=== PATIENT | male | born 1995 | race Caucasian/White ===

== ENCOUNTER 2018-08-17 09:29 | Emergency (ER) | payer MEDICAID, SELFPAY ==
[2018-08-17] VITALS (13 sets, daily range): BP systolic 113–143; BP diastolic 58–90; PULSE 75–92; RESP 14–18; TEMP 36.6; O2SAT 96–98; BMI 25.8
--- NOTE | 2018-08-17 09:59 | ED.RN ---
pt friend approaches this rn and states pt has attempted to kill self 3 times recently. pt did not admit to this earlier during triage
[2018-08-17] MEDS: Ibuprofen 600 MG Tablet PO ×2 (10:12→17:07)
[2018-08-17 10:13] LABS: Absolute Lymphocyte Count 2.52 X10^3/ul (0.83-4.51); Absolute Neutrophil Count 3.5 X10^3/uL (2.0-7.7); Basophil# 0.06 X10^3/uL; Basophil% 0.8 % (0-1); Eosinophil# 0.47 X10^3/uL; Eosinophils% 6.6 % (0-5); Hematocrit 47.3 % (40-54); Hemoglobin 16.5 g/dl (13.0-16.5); Lymphocyte # 2.52 X10^3/ul (4.0); Lymphocyte % 35.6 % (19-41); Mean Corp Hgb Conc 34.9 g/gl (32-36); Mean Corpuscular Hgb 30.6 pg (27.0-32.0); Mean Corpuscular Volume 87.8 fL (80-94); Mean Platelet Vol. 10.6 fl (6.2-12.0); Monocyte# 0.45 X10^3/uL; Monocyte% 6.4 % (0-10); Neutrophil # 3.54 X10^3/uL (2.7-7.7); POSITIVE COUNT NO; POSITIVE DIFFERENTIAL NO; POSITIVE MORPHOLOGY NO; Platelet Count 259 K/mm3 (150-450); RBC Distribution Width CV 12.5 % (11.6-14.6); RBC Distribution Width SD 40.2 fl (35.1-43.9); Red Blood Count 5.39 M/mm3 (4.6-6.2); White Blood Count 7.1 K/mm3 (4.4-11.0)
[2018-08-17 10:26] LABS: Anion Gap 7 (5-15); BUN 15 mg/dL (7-18); BUN/Creat Ratio 21.4 RATIO (10-20); Calcium,Total 8.8 mg/dL (8.5-10.1); Chloride 108 mmol/L (98-107); EST Glomerular Filtration Rate 146 mL/min (>60); Est Glom Filt Rate - Afr Amer 176 mL/min (>60); Estimated Creatinine Clearance 161.32 ml/min; Glucose 114 mg/dL (74-106); Potassium 3.7 mmol/L (3.5-5.1); Sodium Level 141 mmol/L (136-145)
[2018-08-17 10:46] LABS: Amphetamine Urine VISTA NEGATIVE (<1000 ng/mL); Barbiturate Urine VISTA NEGATIVE (< 200 ng/mL); Benzodiazepine Urine VISTA NEGATIVE (< 200 ng/mL); Cocaine Urine VISTA NEGATIVE (< 300 ng/mL); Ecstacy Urine VISTA NEGATIVE (< 500 ng/mL); Methadone Urine VISTA NEGATIVE (< 300 ng/mL); PCP Urine VISTA NEGATIVE (< 25 ng/mL); THC Urine VISTA POSITIVE (< 50 ng/mL); Vista UDS pH Range 5
--- NOTE | 2018-08-17 11:41 | NURSING ---
CALLED CRISIS. LEFT MESSAGE ABOUT PATIENT BEING MEDICALLY CLEARED
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
--- NOTE | 2018-08-17 14:34 | NURSING ---
KODI, CRISIS, CALLED. MADE AWARE OF PATIENT
--- NOTE | 2018-08-17 15:31 | NURSING ---
CALLED CRISIS, TALKED TO JOSE MARIEE WILL BE COMING TO SEE PATIENT
--- NOTE | 2018-08-17 15:35 | NURSING ---
JOSE, CRISIS, CALLED. SHE WILL BE HERE ABOUT 1700
--- NOTE | 2018-08-17 17:47 | NURSING ---
JOSE, CRISIS, HERE
[2018-08-18] VITALS (8 sets, daily range): BP systolic 106–107; BP diastolic 62–66; PULSE 52–78; RESP 16–20; TEMP 36.7; O2SAT 97
--- OUTSIDE RECORDS SUMMARY | 2018-10-03 11:57 | XMS RPT_ITS ---
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 20.80 LAB RBCCT(LOINC 4.50-6.00 10 6/mcL ) RBC 4.86 LAB HGB(LOINC) 13.0-17.5 G/dL Hgb 14.8 LAB HCT(LOINC) 40.0-52.0 % Hct 44.2 LAB MCV(LOINC) 81.0-100.0 fL MCV 90.8 LAB MCH(LOINC) 27.0-33.0 pg MCH 30.4 LAB MCHC(LOINC) 32.0-36.0 G/dL MCHC 33.5 LAB RDW(LOINC) 11.5-15.5 % RDW 13.0 LAB PLT(LOINC) 150-450 10 3/mcL Platelet 164 LAB MPV(LOINC) 6.4-10.5 fL MPV 9.0 Performed By: #### CBC, ADIFF, ANEU, BMP, CK, GFR #### [place] [id number] .AUTO DIFF Collected: 05/16/2018 Status: F Source: [facility] 4:32 AM [facility] [place] REPOSITORY TYPE CODE TESTS RESULT OUT OF REFERENCE UNITS RANGE LAB CHACE(LOINC) 50.0-75.0 % High Neutrophil % 85.8 LAB LYM(LOINC) 20.0-40.0 % Low Lymphocyte % 5.1 LAB MON(LOINC) 2.0-13.0 % Monocyte % 5.9 LAB EO(LOINC) 0.0-6.0 % Eosinophil % 2.8 LAB BAS(LOINC) 0.0-2.5 % Basophil % 0.4 LAB ABLYM(LOIN 0.90-4.32 10 3/mcL C) Lymphocyte, 1.10 Absolute LAB GERARDO(LOINC 0.09-1.40 10 3/mcL ) Monocyte, 1.20 Absolute LAB AEOS(LOINC 0.00-0.65 10 3/mcL ) Eosinophil, 0.60 Absolute LAB ABAS(LOINC 0.00-0.27 10 3/mcL ) Basophil, 0.10 Absolute Performed By: #### CBC, ADIFF, ANEU, BMP, CK, GFR #### [place] [id number] .NEUABS Collected: 05/16/2018 Status: F Source: [facility] 4:32 AM [facility] [place] REPOSITORY TYPE CODE TESTS RESULT OUT OF REFERENCE UNITS RANGE LAB ANEU(LOINC) 2.25-8.10 10 3/mcL High Neutrophil, 17.80 Absolute Performed By: #### CBC, ADIFF, ANEU, BMP, CK, GFR #### [place] [address] BMP Collected: 05/16/2018 Status: F Source: [facility] 4:32 AM [facility] [place] REPOSITORY TYPE CODE TESTS RESULT OUT OF REFERENCE UNITS RANGE LAB GLU(LOINC) 70-110 mg/dL Glucose Level 107 LAB NA(LOINC) 136-145 mEq/L Sodium Level 143 LAB K(LOINC) 3.5-5.0 mEq/L Low Potassium Level 3.2 LAB CL(LOINC) 98-110 mEq/L Chloride 107 LAB CO2(LOINC) 22-32 mEq/L CO2 23 LAB EBAL(LOINC 4.0-15.0 mEq/L ) Electrolyte Balance 13.0 LAB BUN(LOINC) 8.0-22.0 mg/dL Low BUN 7.0 LAB CRE(LOINC) 0.60-1.40 mg/dL Creatinine Lvl (s) 0.75 LAB BC(LOINC) 10.0-22.0 ratio Low BUN/Creatinine 9.3 Ratio LAB CA(LOINC) 8.4-10.1 mg/dL Calcium Lvl 9.2 Performed By: #### CBC, ADIFF, ANEU, BMP, CK, GFR #### [address] [address] CK Collected: 05/16/2018 Status: F Source: [facility] 4:32 AM [facility] [place] REPOSITORY TYPE CODE TESTS RESULT OUT OF RANGE REFERENCE UNITS LAB CK(LOINC) 7-185 U/L High CPK 967 Performed By: #### CBC, ADIFF, ANEU, BMP, CK, GFR #### [address] [address] .GFR Collected: 05/16/2018 Status: F Source: [facility] 4:32 AM [facility] [place] REPOSITORY TYPE CODE TESTS RESULT OUT OF REFERENCE UNITS RANGE LAB GFRAA(LOINC ml/min/1.73 ) sqm GFR >60 Russian Result Comment: GFR Population mean for , Non- Americans Ages 20-29 = 116 mL/min/1.73 sq.m. Ages 30-39 = 107 mL/min/1.73 sq.m. Ages 40-49 = 99 mL/min/1.73 sq.m. Ages 50-59 = 93 mL/min/1.73 sq.m. Ages 60-69 = 85 mL/min/1.73 sq.m. Ages 70+ = 75 mL/min/1.73 sq.m. Chronic Kidney Disease: Less than 60 mL/min/1.73 square meters End Stage Renal Disease: Less than 15 mL/min/1.73 square meters LAB GFRNO(LOINC) ml/min/1.73sqm GFR Non- >60 Result Comment: GFR Population mean for , Non- Americans Ages 20-29 = 116 mL/min/1.73 sq.m. Ages 30-39 = 107 mL/min/1.73 sq.m. Ages 40-49 = 99 mL/min/1.73 sq.m. Ages 50-59 = 93 mL/min/1.73 sq.m. Ages 60-69 = 85 mL/min/1.73 sq.m. Ages 70+ = 75 mL/min/1.73 sq.m. Chronic Kidney Disease: Less than 60 mL/min/1.73 square meters End Stage Renal Disease: Less than 15 mL/min/1.73 square meters Performed By: #### CBC, ADIFF, ANEU, BMP, CK, GFR #### [place] [address] PHOS Collected: 05/16/2018 Status: F Source: [facility] 4:32 AM [facility] [place] REPOSITORY Order Comment: ADD ON TEST TO MORNING LABS. Thank you TYPE CODE TESTS RESULT OUT OF REFERENCE UNITS RANGE LAB PHOS(LOINC 2.5-4.5 mg/dL ) Low Phosphorus 2.1 Performed By: #### PHOS #### [place] [address] MG Collected: 05/15/2018 Status: F Source: [facility] 4:46 PM [facility] [place] REPOSITORY TYPE CODE TESTS RESULT OUT OF REFERENCE UNITS RANGE LAB MG(LOINC) 1.6-2.4 mg/dL Magnesium Lvl 1.8 Performed By: #### MG #### [place] [address] TROPI Collected: 05/15/2018 Status: F Source: [facility] 9:41 AM [facility] [place] REPOSITORY TYPE CODE TESTS RESULT OUT OF REFERENCE UNITS RANGE LAB TROPI(LOINC 0.000-0.040 ng/mL ) Troponin I 0.038 Result Comment: Troponin I reference ranges (05/14/14): 0.00-0.040 ng/mL Negative and non-diagnostic. >0.040 ng/mL Consistent with cardiac damage, increased clinical risk and possibility of myocardial infarction. Serial measurements, a rise & fall in test results, clinical history, appropriate symptoms and/or ECG changes may help assess possibility of ID. *Other non-acute coronary syndrome conditions such as CHF, myocarditis, pulmonary emboli, sepsis and cardiac surgery could result in myocardial damage and increased troponin levels. Performed By: #### TROPI #### [place] [id number] Observed: 05/15/2018 Status: F Source: [facility] 8:13 AM [facility] [place] REPOSITORY . MICRO - Microbiology PROCEDURE: Culture Respiratory with Gram Stain [^1 *1] SOURCE: Tracheal Aspirate BODY SITE: COLLECTED DATE/TIME: 05/15/2018 08:13 EDT RECEIVED DATE/TIME: 05/15/2018 08:29 EDT START DATE/TIME: 05/15/2018 08:29 EDT FREE TEXT SOURCE: FINAL REPORTS Final Report [] Verified Date/Time/Personnel: 05/17/2018 06:56 EDT Normal respiratory selin present. PRELIMINARY REPORTS Preliminary Report [] Verified Date/Time/Personnel: 05/16/2018 09:01 EDT Negative for respiratory pathogens at 24 hours. STAINS GS [] Verified Date/Time/Personnel: 05/15/2018 09:49 EDT 4+ Polymorphonuclear cells 4+ Gram Positive Cocci Interpretive Data ^1: Culture Respiratory with Gram Stain Requests for Mycoplasma, Legionella, Fungi, Mycobacteria, Chlamydia, and Viruses require ordering of those individual tests. Performing Locations *1: This test was performed at: [facility], [address] [place] [address], [address] [place] [address] Performed By: #### KENYATTA #### [address] [address] BG Collected: 05/15/2018 Status: F Source: [facility] 7:16 AM [facility] [place] REPOSITORY TYPE CODE TESTS RESULT OUT OF REFERENCE UNITS RANGE LAB PH(LOINC) 7.380-7.460 pH High 7.466 LAB PCO2(LOINC 32.0-46.0 mmHg ) pCO2 33.5 LAB PO2(LOINC) 74.0-108.0 mmHg pO2 High 131.7 LAB HCO3(LOINC 21.0-29.0 mmol/L ) HCO3 23.6 LAB TCO2(LOINC 22.0-30.0 mmol/L ) CO2 Totl 24.6 LAB BE(LOINC) mmol/L Base Excess 0.5 LAB O2SAT(LOIN 92.0-96.0 % C) O2 Sat High 98.9 LAB BPRES(LOIN mmHg C) Barometric 733 Pressure Performed By: #### BG #### [address] [address] XR CHEST 1 VIEW Observed: 05/15/2018 Status: F Source: [facility] 5:14 AM [facility] [place] REPOSITORY ORIGINAL XR CHEST 1 VIEW, portable upright 7:01 AM Clinical Statement: sob, Comparison: 05/14/2018 Findings: No consolidation, pneumothorax, pleural fluid, or vascular congestion is seen. Heart size and mediastinal contours are within normal limits for age and projection. No acute skeletal abnormality. Endotra cheal tube tip is 6 cm above the dante. Enteric tube is in the stomach, tip not included. IMPRESSION: No acute cardiopulmonary process. Interpreted By: Chalo Mirza MD Preliminary Report By: Chalo Mirza MD Electronically Signed By: Chalo Mirza MD Dictated Date: 05/15/2018 7:46:33 AM Prelim Date: 05/15/2018 7:46:33 AM Sign Date: 05/15/2018 7:47:09 AM CAION Collected: 05/15/2018 Status: F Source: [facility] 3:52 AM [facility] [place] REPOSITORY TYPE CODE TESTS RESULT OUT OF REFERENCE UNITS RANGE LAB CAION(LOINC 1.12-1.32 mmol/L ) Low Calcium 1.05 Ionized Performed By: #### CAION, CBC, ADIFF, ANEU, TROPI, CK, BMP, MG, GFR, PHOS #### [place] [id number] CBC Collected: 05/15/2018 Status: F Source: [facility] 3:52 AM [facility] [place] REPOSITORY TYPE CODE TESTS RESULT OUT OF REFERENCE UNITS RANGE LAB WBC(LOINC) 4.50-10.80 10 3/mcL High WBC 11.90 LAB RBCCT(LOINC 4.50-6.00 10 6/mcL ) RBC 4.56 LAB HGB(LOINC) 13.0-17.5 G/dL Hgb 13.9 LAB HCT(LOINC) 40.0-52.0 % Hct 40.8 LAB MCV(LOINC) 81.0-100.0 fL MCV 89.4 LAB MCH(LOINC) 27.0-33.0 pg MCH 30.5 LAB MCHC(LOINC) 32.0-36.0 G/dL MCHC 34.2 LAB RDW(LOINC) 11.5-15.5 % RDW 12.9 LAB PLT(LOINC) 150-450 10 3/mcL Platelet 167 LAB MPV(LOINC) 6.4-10.5 fL MPV 8.7 Performed By: #### STANLEY, CBC, ADIFF, ANEU, TROPI, CK, BMP, MG, GFR, PHOS #### [address] [address] .AUTO DIFF Collected: 05/15/2018 Status: F Source: [facility] 3:52 AM [facility] [place] REPOSITORY TYPE CODE TESTS RESULT OUT OF REFERENCE UNITS RANGE LAB CHACE(LOINC) 50.0-75.0 % High Neutrophil % 79.8 LAB LYM(LOINC) 20.0-40.0 % Low Lymphocyte % 9.5 LAB MON(LOINC) 2.0-13.0 % Monocyte % 7.2 LAB EO(LOINC) 0.0-6.0 % Eosinophil % 2.9 LAB BAS(LOINC) 0.0-2.5 % Basophil % 0.6 LAB ABLYM(LOIN 0.90-4.32 10 3/mcL C) Lymphocyte, 1.10 Absolute LAB GERARDO(LOINC 0.09-1.40 10 3/mcL ) Monocyte, 0.90 Absolute LAB AEOS(LOINC 0.00-0.65 10 3/mcL ) Eosinophil, 0.30 Absolute LAB ABAS(LOINC 0.00-0.27 10 3/mcL ) Basophil, 0.10 Absolute Performed By: #### STANLEY, CBC, ADIFF, ANEU, TROPI, CK, BMP, MG, GFR, PHOS #### [address] [address] .NEUABS Collected: 05/15/2018 Status: F Source: [facility] 3:52 AM [facility] [place] REPOSITORY TYPE CODE TESTS RESULT OUT OF REFERENCE UNITS RANGE LAB ANEU(LOINC) 2.25-8.10 10 3/mcL High Neutrophil, 9.50 Absolute Performed By: #### STANLEY, CBC, ADIFF, ANEU, TROPI, CK, BMP, MG, GFR, PHOS #### [address] [address] TROPI Collected: 05/15/2018 Status: F Source: [facility] 3:52 AM [facility] [place] REPOSITORY TYPE CODE TESTS RESULT OUT OF REFERENCE UNITS RANGE LAB TROPI(LOINC 0.000-0.040 ng/mL ) Troponin I 0.037 Result Comment: Troponin I reference ranges (05/14/14): 0.00-0.040 ng/mL Negative and non-diagnostic. >0.040 ng/mL Consistent with cardiac damage, increased clinical risk and possibility of myocardial infarction. Serial measurements, a rise & fall in test results, clinical history, appropriate symptoms and/or ECG changes may help assess possibility of ID. *Other non-acute coronary syndrome conditions such as CHF, myocarditis, pulmonary emboli, sepsis and cardiac surgery could result in myocardial damage and increased troponin levels. Performed By: #### CAION, CBC, ADIFF, ANEU, TROPI, CK, BMP, MG, GFR, PHOS #### [place] [id number] CK Collected: 05/15/2018 Status: F Source: [facility] 3:52 AM [facility] [place] REPOSITORY TYPE CODE TESTS RESULT OUT OF RANGE REFERENCE UNITS LAB CK(LOINC) 7-185 U/L High CPK 2335 Performed By: #### CAION, CBC, ADIFF, ANEU, TROPI, CK, BMP, MG, GFR, PHOS #### [place] [address] BMP Collected: 05/15/2018 Status: F Source: [facility] 3:52 AM [facility] [place] REPOSITORY TYPE CODE TESTS RESULT OUT OF REFERENCE UNITS RANGE LAB GLU(LOINC) 70-110 mg/dL Glucose Level 97 LAB NA(LOINC) 136-145 mEq/L Sodium High Level 146 LAB K(LOINC) 3.5-5.0 mEq/L Low Potassium Level 3.4 LAB CL(LOINC) 98-110 mEq/L Chloride High 111 LAB CO2(LOINC) 22-32 mEq/L CO2 23 LAB EBAL(LOINC 4.0-15.0 mEq/L ) Electrolyte Balance 12.0 LAB BUN(LOINC) 8.0-22.0 mg/dL BUN 9.0 LAB CRE(LOINC) 0.60-1.40 mg/dL Creatinine Lvl (s) 0.78 LAB BC(LOINC) 10.0-22.0 ratio BUN/Creatinine 11.5 Ratio LAB CA(LOINC) 8.4-10.1 mg/dL Calcium Lvl 8.4 Performed By: #### CAION, CBC, ADIFF, ANEU, TROPI, CK, BMP, MG, GFR, PHOS #### [address] [address] MG Collected: 05/15/2018 Status: F Source: [facility] 3:52 AM [facility] [place] REPOSITORY TYPE CODE TESTS RESULT OUT OF REFERENCE UNITS RANGE LAB MG(LOINC) 1.6-2.4 mg/dL Magnesium Lvl 1.8 Performed By: #### CAION, CBC, ADIFF, ANEU, TROPI, CK, BMP, MG, GFR, PHOS #### [address] [address] .GFR Collected: 05/15/2018 Status: F Source: [facility] 3:52 AM [facility] [place] REPOSITORY TYPE CODE TESTS RESULT OUT OF REFERENCE UNITS RANGE LAB GFRAA(LOINC ml/min/1.73 ) sqm GFR >60 Russian Result Comment: GFR Population mean for , Non- Americans Ages 20-29 = 116 mL/min/1.73 sq.m. Ages 30-39 = 107 mL/min/1.73 sq.m. Ages 40-49 = 99 mL/min/1.73 sq.m. Ages 50-59 = 93 mL/min/1.73 sq.m. Ages 60-69 = 85 mL/min/1.73 sq.m. Ages 70+ = 75 mL/min/1.73 sq.m. Chronic Kidney Disease: Less than 60 mL/min/1.73 square meters End Stage Renal Disease: Less than 15 mL/min/1.73 square meters LAB GFRNO(LOINC) ml/min/1.73sqm GFR Non- >60 Result Comment: GFR Population mean for , Non- Americans Ages 20-29 = 116 mL/min/1.73 sq.m. Ages 30-39 = 107 mL/min/1.73 sq.m. Ages 40-49 = 99 mL/min/1.73 sq.m. Ages 50-59 = 93 mL/min/1.73 sq.m. Ages 60-69 = 85 mL/min/1.73 sq.m. Ages 70+ = 75 mL/min/1.73 sq.m. Chronic Kidney Disease: Less than 60 mL/min/1.73 square meters End Stage Renal Disease: Less than 15 mL/min/1.73 square meters Performed By: #### CAION, CBC, ADIFF, ANEU, TROPI, CK, BMP, MG, GFR, PHOS #### [address] [address] PHOS Collected: 05/15/2018 Status: F Source: [facility] 3:52 AM [facility] [place] REPOSITORY TYPE CODE TESTS RESULT OUT OF REFERENCE UNITS RANGE LAB PHOS(LOINC 2.5-4.5 mg/dL ) Phosphorus 2.8 Performed By: #### CAION, CBC, ADIFF, ANEU, TROPI, CK, BMP, MG, GFR, PHOS #### [address] [address] TROPI Collected: 05/14/2018 Status: F Source: [facility] 10:09 PM [facility] [place] REPOSITORY TYPE CODE TESTS RESULT OUT OF REFERENCE UNITS RANGE LAB TROPI(LOINC 0.000-0.040 ng/mL ) High Troponin I 0.076 Result Comment: Troponin I reference ranges (05/14/14): 0.00-0.040 ng/mL Negative and non-diagnostic. >0.040 ng/mL Consistent with cardiac damage, increased clinical risk and possibility of myocardial infarction. Serial measurements, a rise & fall in test results, clinical history, appropriate symptoms and/or ECG changes may help assess possibility of ID. *Other non-acute coronary syndrome conditions such as CHF, myocarditis, pulmonary emboli, sepsis and cardiac surgery could result in myocardial damage and increased troponin levels. Performed By: #### TROPI #### [address] [address] Observed: 05/14/2018 Status: F Source: [facility] 6:07 PM [facility] [place] REPOSITORY . MICRO - Microbiology PROCEDURE: MRSA PCR [*1] SOURCE: Nares BODY SITE: COLLECTED DATE/TIME: 05/14/2018 18:07 EDT RECEIVED DATE/TIME: 05/14/2018 18:58 EDT START DATE/TIME: 05/14/2018 18:59 EDT FREE TEXT SOURCE: FINAL REPORTS Final Report [] Verified Date/Time/Personnel: 05/14/2018 22:37 EDT MRSA NEGATIVE. MRSA DNA not detected by Real-Time Polymerase Chain Reaction (PCR). A negative result may be due to intermittent colonization. Colonization may vary depending on patient treatment, patient status or exposure to high risk environments. As with all PCR based in vitro tests, extremely low levels of target below the limit of detection of the assay may be detected, but results may not be reproducible. Performing Locations *1: This test was performed at: [facility], [address] [place] [address], [address] [place] [address] Performed By: #### MRPCR #### [place] [address] DRUGU Collected: 05/14/2018 Status: F Source: [facility] 3:45 [facility] REPOSITORY TYPE CODE TESTS RESULT OUT OF RANGE REFERENCE UNITS LAB UDS(LOINC) Positive Unknown Drug Screen Urine LAB UDSDINT(LO INC) The Unknown Drug Screen urine is Urine Interp presumptive positive for: _ LAB SGDU(LOINC 1.005-1.030 ) 1.[address] Scrn LAB PHDU(LOINC 5.0-8.0 ) 7.0 U pH Drug Scrn LAB UDS0(LOINC ) See Urine Drugs Below screened: Result Comment: This drug screen is a presumptive screening only. No confirmation will be performed unless requested. Drugs screened include: Threshold Amphetamines/Methamphetamines 1,000 ng/mL Barbiturates 200 ng/mL Benzodiazepine metabolites 200 ng/mL Cannabinoids (THC metabolites) 50 ng/mL Benzoylecognine (Cocaine metab) 300 ng/mL Opiates 300 ng/mL Phencyclidine (PCP) 25 ng/mL Methadone 300 ng/mL Propoxyphene 300 ng/mL Testing has been performed FOR MEDICAL PURPOSES ONLY. Performed By: #### DRUGU #### [place] [address] UA Collected: 05/14/2018 Status: F Source: [facility] 3:45 PM [facility] [place] REPOSITORY TYPE CODE TESTS RESULT OUT OF RANGE REFERENCE UNITS LAB SPCUA(MAXINE NC) UA Specimen Type Catheter LAB CLRUA(MAXINE NC) UA Color Yellow LAB APPUA(MAXINE Clear NC) UA Appear Clear LAB SGUA(LOIN 1.006-1.029 C) UA Spec Grav 1.015 LAB GLUA(LOIN Negative mg/dL C) UA Glucose Unknown 100 LAB BILUA(MAXINE Neg-Trace NC) UA Bili Negative LAB KETUA(MAXINE Neg-Trace mg/dL NC) UA Ketones Negative LAB BLDUA(MAXINE Neg-Trace NC) UA Blood Trace LAB PHUA(LOIN 5.0 - 8.0 C) UA pH 7.0 LAB PROUA(MAXINE Negative mg/dL NC) UA Protein Negative LAB UROUA(MAXINE 0.2-1.0 E.U./dL NC) UA Urobilinogen 1.0 LAB NITUA(MAXINE Negative NC) UA Nitrite Negative LAB LEUUA(MAXINE Negative NC) UA Leuk Est Trace Performed By: #### UA #### [place] [address] BG Collected: 05/14/2018 Status: F Source: [facility] 3:09 PM [facility] [place] REPOSITORY TYPE CODE TESTS RESULT OUT OF REFERENCE UNITS RANGE LAB PH(LOINC) 7.380-7.460 Low pH 7.353 LAB PCO2(LOINC 32.0-46.0 mmHg ) pCO2 43.7 LAB PO2(LOINC) 74.0-108.0 mmHg pO2 High 178.2 LAB HCO3(LOINC 21.0-29.0 mmol/L ) HCO3 23.7 LAB TCO2(LOINC 22.0-30.0 mmol/L ) CO2 Totl 25.1 LAB BE(LOINC) mmol/L Base Excess -1.9 LAB O2SAT(LOIN 92.0-96.0 % C) O2 Sat High 99.3 LAB BPRES(LOIN mmHg C) Barometric 735 Pressure Performed By: #### BG #### [place] [address] CK Collected: 05/14/2018 Status: F Source: [facility] 2:36 PM [facility] [place] REPOSITORY TYPE CODE TESTS RESULT OUT OF RANGE REFERENCE UNITS LAB CK(LOINC) 7-185 U/L High CPK 1859 Performed By: #### CK #### [place] [address] Observed: 05/14/2018 Status: F Source: [facility] 2:36 PM [facility] [place] REPOSITORY . MICRO - Microbiology PROCEDURE: Blood Culture (bacterial) [*1] SOURCE: Blood BODY SITE: COLLECTED DATE/TIME: 05/14/2018 14:36 EDT RECEIVED DATE/TIME: 05/14/2018 15:35 EDT START DATE/TIME: 05/14/2018 15:35 EDT FREE TEXT SOURCE: FINAL REPORTS Final Report [] Verified Date/Time/Personnel: 05/19/2018 15:59 EDT Blood Culture: No Growth at 5 days. PRELIMINARY REPORTS Preliminary Report [] Verified Date/Time/Personnel: 05/14/2018 16:59 EDT Culture has been received in lab and is no growth to date. Routine cultures are held for 5 days. Performing Locations *1: This test was performed at: [address], [address] [place] [address] Performed By: #### CBL #### [place] [address] CBC Collected: 05/14/2018 Status: F Source: [facility] 2:33 PM [facility] REPOSITORY TYPE CODE TESTS RESULT OUT OF REFERENCE UNITS RANGE LAB WBC(LOINC) 4.50-10.80 10 3/mcL High WBC 14.30 LAB RBCCT(LOINC 4.50-6.00 10 6/mcL ) RBC 4.72 LAB HGB(LOINC) 13.0-17.5 G/dL Hgb 14.1 LAB HCT(LOINC) 40.0-52.0 % Hct 42.7 LAB MCV(LOINC) 81.0-100.0 fL MCV 90.3 LAB MCH(LOINC) 27.0-33.0 pg MCH 29.8 LAB MCHC(LOINC) 32.0-36.0 G/dL MCHC 33.0 LAB RDW(LOINC) 11.5-15.5 % RDW 12.9 LAB PLT(LOINC) 150-450 10 3/mcL Platelet 199 LAB MPV(LOINC) 6.4-10.5 fL MPV 8.4 Performed By: #### CBC, ADIFF, ANEU, CAION, MG, PHOS, CMP, GFR, TROPI #### [place] [id number] .AUTO DIFF Collected: 05/14/2018 Status: F Source: [address] REPOSITORY TYPE CODE TESTS RESULT OUT OF REFERENCE UNITS RANGE LAB CHACE(LOINC) 50.0-75.0 % High Neutrophil % 83.9 LAB LYM(LOINC) 20.0-40.0 % Low Lymphocyte % 8.7 LAB MON(LOINC) 2.0-13.0 % Monocyte % 6.7 LAB EO(LOINC) 0.0-6.0 % Eosinophil % 0.4 LAB BAS(LOINC) 0.0-2.5 % Basophil % 0.3 LAB ABLYM(LOIN 0.90-4.32 10 3/mcL C) Lymphocyte, 1.20 Absolute LAB GERARDO(LOINC 0.09-1.40 10 3/mcL ) Monocyte, 1.00 Absolute LAB AEOS(LOINC 0.00-0.65 10 3/mcL ) Eosinophil, 0.10 Absolute LAB ABAS(LOINC 0.00-0.27 10 3/mcL ) Basophil, 0.00 Absolute Performed By: #### CBC, ADIFF, ANEU, CAION, MG, PHOS, CMP, GFR, TROPI #### [place] [id number] .NEUABS Collected: 05/14/2018 Status: F Source: [address] REPOSITORY TYPE CODE TESTS RESULT OUT OF REFERENCE UNITS RANGE LAB ANEU(LOINC) 2.25-8.10 10 3/mcL High Neutrophil, 12.00 Absolute Performed By: #### CBC, ADIFF, ANEU, CAION, MG, PHOS, CMP, GFR, TROPI #### [place] [id number] CAION Collected: 05/14/2018 Status: F Source: [address] REPOSITORY TYPE CODE TESTS RESULT OUT OF REFERENCE UNITS RANGE LAB CAION(LOINC 1.12-1.32 mmol/L ) Low Calcium 1.08 Ionized Performed By: #### CBC, ADIFF, ANEU, CAION, MG, PHOS, CMP, GFR, TROPI #### [place] [id number] MG Collected: 05/14/2018 Status: F Source: [address] REPOSITORY TYPE CODE TESTS RESULT OUT OF REFERENCE UNITS RANGE LAB MG(LOINC) 1.6-2.4 mg/dL Magnesium Lvl 1.9 Performed By: #### CBC, ADIFF, ANEU, CAION, MG, PHOS, CMP, GFR, TROPI #### [place] [id number] PHOS Collected: 05/14/2018 Status: F Source: [facility] 2:33 PM [facility], [place] REPOSITORY TYPE CODE TESTS RESULT OUT OF REFERENCE UNITS RANGE LAB PHOS(LOINC 2.5-4.5 mg/dL ) Phosphorus 4.0 Performed By: #### CBC, ADIFF, ANEU, CAION, MG, PHOS, CMP, GFR, TROPI #### [place] [id number] CMP Collected: 05/14/2018 Status: F Source: [facility] 2:[address] [place] [address] REPOSITORY TYPE CODE TESTS RESULT OUT OF REFERENCE UNITS RANGE LAB GLU(LOINC) 70-110 mg/dL Glucose Level 80 LAB NA(LOINC) 136-145 mEq/L Sodium Level 145 LAB K(LOINC) 3.5-5.0 mEq/L Potassium Level 3.9 LAB CL(LOINC) 98-110 mEq/L Chloride 110 LAB CO2(LOINC) 22-32 mEq/L CO2 25 LAB EBAL(LOINC 4.0-15.0 mEq/L ) Electrolyte Balance 10.0 LAB BUN(LOINC) 8.0-22.0 mg/dL BUN 9.0 LAB CRE(LOINC) 0.60-1.40 mg/dL Creatinine Lvl (s) 0.72 LAB BC(LOINC) 10.0-22.0 ratio BUN/Creatinine 12.5 Ratio LAB CA(LOINC) 8.4-10.1 mg/dL Low Calcium Lvl 7.8 LAB PROT(LOINC 6.0-8.5 G/dL ) Total Protein 7.1 LAB ALB(LOINC) 3.2-4.8 G/dL Albumin Level 3.9 LAB GLB(LOINC) 1.5-3.8 G/dL Globulin 3.2 LAB AG(LOINC) 0.9-1.6 ratio A/G Ratio 1.2 LAB BILT(LOINC 0.2-1.2 mg/dL ) Bili Total 0.4 LAB AP(LOINC) 38-126 U/L Alk Phos 68 LAB AST(LOINC) 8-34 U/L AST/SGOT High 39 LAB ALT(LOINC) 12-55 U/L ALT/SGPT 50 Performed By: #### CBC, ADIFF, ANEU, CAION, MG, PHOS, CMP, GFR, TROPI #### [place] [id number] .GFR Collected: 05/14/2018 Status: F Source: [facility] 2:33 PM [facility] REPOSITORY TYPE CODE TESTS RESULT OUT OF REFERENCE UNITS RANGE LAB GFRAA(LOINC ml/min/1.73 ) sqm GFR >60 Russian Result Comment: GFR Population mean for , Non- Americans Ages 20-29 = 116 mL/min/1.73 sq.m. Ages 30-39 = 107 mL/min/1.73 sq.m. Ages 40-49 = 99 mL/min/1.73 sq.m. Ages 50-59 = 93 mL/min/1.73 sq.m. Ages 60-69 = 85 mL/min/1.73 sq.m. Ages 70+ = 75 mL/min/1.73 sq.m. Chronic Kidney Disease: Less than 60 mL/min/1.73 square meters End Stage Renal Disease: Less than 15 mL/min/1.73 square meters LAB GFRNO(LOINC) ml/min/1.73sqm GFR Non- >60 Result Comment: GFR Population mean for , Non- Americans Ages 20-29 = 116 mL/min/1.73 sq.m. Ages 30-39 = 107 mL/min/1.73 sq.m. Ages 40-49 = 99 mL/min/1.73 sq.m. Ages 50-59 = 93 mL/min/1.73 sq.m. Ages 60-69 = 85 mL/min/1.73 sq.m. Ages 70+ = 75 mL/min/1.73 sq.m. Chronic Kidney Disease: Less than 60 mL/min/1.73 square meters End Stage Renal Disease: Less than 15 mL/min/1.73 square meters Performed By: #### CBC, ADIFF, ANEU, CAION, MG, PHOS, CMP, GFR, TROPI #### [place] [address] TROPI Collected: 05/14/2018 Status: F Source: [place] [id number]:[address] [place] [address] REPOSITORY TYPE CODE TESTS RESULT OUT OF REFERENCE UNITS RANGE LAB TROPI(LOINC 0.000-0.040 ng/mL ) High Troponin I 0.141 Result Comment: Troponin I reference ranges (05/14/14): 0.00-0.040 ng/mL Negative and non-diagnostic. >0.040 ng/mL Consistent with cardiac damage, increased clinical risk and possibility of myocardial infarction. Serial measurements, a rise & fall in test results, clinical history, appropriate symptoms and/or ECG changes may help assess possibility of ID. *Other non-acute coronary syndrome conditions such as CHF, myocarditis, pulmonary emboli, sepsis and cardiac surgery could result in myocardial damage and increased troponin levels. Performed By: #### CBC, ADIFF, ANEU, CAION, MG, PHOS, CMP, GFR, TROPI #### [place] [address] LAC Collected: 05/14/2018 Status: F Source: [address] REPOSITORY TYPE CODE TESTS RESULT OUT OF REFERENCE UNITS RANGE LAB LAC(LOINC) 0.2-2.0 mmol/L Lactic Acid 1.2 Lvl Performed By: #### LAC #### [place] [address] ALC Collected: 05/14/2018 Status: F Source: [place] [address]:[address] [place] [address] REPOSITORY TYPE CODE TESTS RESULT OUT OF REFERENCE UNITS RANGE LAB CD:[id number]( mg/dL LOINC) Ethanol Level <10.0 Performed By: #### ALC, DRUGS #### [place] [address] DRUGS Collected: 05/14/2018 Status: F Source: [place] [address]:[address] [place] [address] REPOSITORY TYPE CODE TESTS RESULT OUT OF RANGE REFERENCE UNITS LAB SDS(LOINC Negative ) Drug Screen (s) Negative LAB UDSDINT(L OINC) Drug Screen Unknown Interp Serum shows no evidence of drugs routinely screened LAB SALIC(MAXINE 10.0-25.0 mg/dL NC) Low Salicylate Lvl (ds) <2.0 LAB CD:[id number] mg/dL 5(LOINC) Ethanol Level <10.0 LAB ACET(LOIN 10.0-30.0 mcg/mL C) Low Acetaminophen (ds) <2.0 LAB STCA(LOIN ng/mL C) TCA (s) NEG LAB SDS0(LOIN C) Serum Drugs screened: See Below Result Comment: This drug screen is a presumptive screening only. No confirmation will be performed unless requested. Drugs included in the ER serum drug screen are: Threshold Ethanol 10.0 mg/dL Salicylate 2.0 mg/dl Acetaminophen 2.0 mcg/mL Tricyclic Antidepressants 300 ng/mL Testing has been performed FOR MEDICAL PURPOSES ONLY. Performed By: #### ALC, DRUGS #### [place] [id number] Observed: 05/14/2018 Status: F Source: [facility] 2:33 PM [facility] [place] REPOSITORY . MICRO - Microbiology PROCEDURE: Blood Culture (bacterial) [*1] SOURCE: Blood BODY SITE: COLLECTED DATE/TIME: 05/14/2018 14:33 EDT RECEIVED DATE/TIME: 05/14/2018 15:35 EDT START DATE/TIME: 05/14/2018 15:35 EDT FREE TEXT SOURCE: FINAL REPORTS Final Report [] Verified Date/Time/Personnel: 05/19/2018 15:59 EDT Blood Culture: No Growth at 5 days. PRELIMINARY REPORTS Preliminary Report [] Verified Date/Time/Personnel: 05/14/2018 16:59 EDT Culture has been received in lab and is no growth to date. Routine cultures are held for 5 days. Performing Locations *1: This test was performed at: [address], [address] [place] [address] Performed By: #### CBL #### [place] [id number] XR CHEST 1 VIEW Observed: 05/14/2018 Status: F Source: [facility] 2:19 PM [facility] [place] REPOSITORY ORIGINAL XR CHEST 1 VIEW CLINICAL STATEMENT: hypoxia COMPARISON: None FINDINGS: The cardiomediastinal silhouette is not enlarged. An endotracheal tube is in place with the distal tip terminating approximately 4 cm above the dante. The proximal portion of the enteric tube is visualized passing inferiorly through the diaphragmatic hiatus. There is no vascular congestion, pleural effusions or pneumothorax. No acute osseous abnormalities are identified. IMPRESSION: Appropriately positioned endotracheal tube. No acute cardiopulmonary abnormalities. I have personally reviewed the images of this examination and agree with the resident's findings and interpretation. Interpreted By: Edie Madrid MD Preliminary Report By: Li Antoine MD Electronically Signed By: Edie Madrid MD Dictated Date: 05/14/2018 2:54:07 PM Prelim Date: 05/14/2018 2:55:42 PM Sign Date: 05/14/2018 3:09:43 PM XR CHEST 1 VIEW Observed: 05/14/2018 Status: F Source: [facility] 2:03 PM [facility] REPOSITORY ORIGINAL XR CHEST 1 VIEW CLINICAL STATEMENT: OG placement COMPARISON: None FINDINGS: An enteric tube is visualized with its distal tip terminating in the distal portion of the stomach. Chest findings reported separately. No additional contributory findings. IMPRESSION: Appropriately positioned enteric tube. I have personally reviewed the images of this examination and agree with the resident's findings and interpretation. Interpreted By: Edie Madrid MD Preliminary Report By: Li Antoine MD Electronically Signed By: Edie Madrid MD Dictated Date: 05/14/2018 2:53:19 PM Prelim Date: 05/14/2018 2:54:00 PM Sign Date: 05/14/2018 3:08:09 PM LACTATE Collected: 05/14/2018 Status: F Source: [facility] 8:05 AM [facility] REPOSITORY TYPE CODE TESTS RESULT OUT OF REFERENCE UNITS RANGE LAB LACTATE(MAXINE 4.5 - 18.0 mg/dL PR) LACTATE 13.3 Performed By: #### [id number] #### [facility],[address] [place] [address] CT FACIAL BONES W/O Observed: 05/14/2018 Status: F Source: [facility] 8:03 AM [facility] REPOSITORY [place] [address] Patient: BRONSON MCCAULEY Phone#: : 1995 Age: 22 Gender: M Pt. Type: ER Account: [id number] Location: 052 Ordering: DR. THEODORE CARLISLE Exam Date: 05/14/2018/7:30 Family Phys: NO DOCTOR Charge Code: [id number] Physician: Clarendon Order #: [id number] DLP Dose#: 30.5 PROCEDURE: CT FACIAL BONES WITHOUT CONTRAST COMPARISON: [facility], CT, BRAIN W/O CON, 05/14/2018, 7:30. INDICATIONS: Overdose TECHNIQUE: After obtaining the patient's consent, CT images were created without non-ionic intravenous contrast. All CT scans at this facility use dose modulation, iterative reconstruction, and/or weight based dosing when appropriate to reduce radiation dose to as low as reasonably achievable. IV CONTRAST: No IV contrast used,0ml TOTAL DOSE: 30.5 CTDIvol(mGy) FINDINGS: FACIAL BONES: Normal. No bony lesion or fracture SINUSES: There is mucosal thickening of the ethmoid air cells. NASAL FOSSA: Mild leftward deviation of the nasal bone with left-sided lucency consistent with nasal bone fracture. A nasogastric tube is seen in the left nasal passage. There is a small rightward nasal septal spur. SKULL BASE: Normal. No mass or bone destruction. ORBITS: Normal. No visible mass, hematoma, edema or fracture. CAVERNOUS SINUS: Normal. Symmetric appearance with no visible lesion. SALIVARY GLANDS: Normal. The parotid and submandibular glands are unremarkable. OTHER: Endotracheal tube is seen in the oral cavity. CONCLUSION: 1. Left nasal bone fracture with mild leftward angulation. 2. Nasogastric tube and endotracheal tube are present. 3. Mucosal thickening of the ethmoid air cells. [place] [address] Patient: BRONSON MCCAULEY Phone#: : 1995 Age: 22 Gender: M Pt. Type: ER Account: [id number] Location: 052 Ordering: DR. THEODORE CARLISLE Exam Date: 05/14/2018/7:30 Family Phys: NO DOCTOR Charge Code: [id number] Physician: Clarendon Order #: [id number] DLP Dose#: 30.5 Dictated by: Arielle Bonilla MD on 05/15/2018 at 15:26 Approved by: Areille Bonilla MD on 05/15/2018 at 15:26 CT CERVICAL W/O Observed: 05/14/2018 Status: F Source: [facility] 8:03 AM [place] [address] Patient: BRONSON MCCAULEY Phone#: : 1995 Age: 22 Gender: M Pt. Type: ER Account: [id number] Location: [facility] Ordering: DR. THEODORE CARLISLE Exam Date: 05/14/2018/7:30 Family Phys: NO DOCTOR Charge Code: [id number] Physician: Clarendon Order #: [id number] DLP Dose#: 10.7 PROCEDURE: CT CERVICAL WITHOUT CONTRAST COMPARISON: None. INDICATIONS: Overdose TECHNIQUE: Multi-planar CT images were created without intravenous contrast. All CT scans at this facility use dose modulation, iterative reconstruction, and/or weight based dosing when appropriate to reduce radiation dose to as low as reasonably achievable. IV CONTRAST: No IV contrast used,0ml TOTAL DOSE: 10.7 CTDIvol(mGy) FINDINGS: CRANIOCERVICAL AREA: Normal foramen magnum with no Chiari malformation. PARASPINAL AREA: Normal with no visible mass. BONES: There is reversal of normal cervical lordosis. The vertebral bodies are maintained in height. The dens is intact. The lateral masses are symmetric. No evidence of fracture or subluxation. Mild rotation at the atlantoaxial interval is likely due to positioning of the patient's head. OTHER: Orogastric and nasogastric tubes are visualized. CERVICAL DISC LEVELS: C2-C3 to C7-T1: No significant disc/facet abnormality, spinal stenosis, or foraminal stenosis. CONCLUSION: 1. No acute osseous abnormality. 2. Reversal of normal cervical lordosis, likely positional or due to muscle spasm. Dictated by: Arielle Bonilla MD on 05/15/2018 at 15:41 Continued Report - Page 2 of 2 Patient: BRONSON MCCAULEY Phone#: : 1995 Age: 22 Gender: M Pt. Type: ER Account: [id number] Location: 052 Ordering: DR. THEODORE CARLISLE Exam Date: 05/14/2018/7:30 Family Phys: NO DOCTOR Charge Code: [id number] Physician: Clarendon Order #: [id number] DLP Dose#: 10.7 Approved by: Arielle Bonilla MD on 05/15/2018 at 15:41 CT BRAIN W/O CONTRAST Observed: 05/14/2018 Status: F Source: [facility] 8:02 AM [place] [address] Patient: BRONSON MCCAULEY Phone#: : 1995 Age: 22 Gender: M Pt. Type: ER Account: [id number] Location: 052 Ordering: DR. THEODORE CARLISLE Exam Date: 05/14/2018/7:30 Family Phys: NO DOCTOR Charge Code: [id number] Physician: Clarendon Order #: [id number] DLP Dose#: 115.0 PROCEDURE: CT BRAIN WITHOUT CONTRAST COMPARISON: None. INDICATIONS: Overdose TECHNIQUE: CT images were obtained without contrast material. All CT scans at this facility use dose modulation, iterative reconstruction, and/or weight based dosing when appropriate to reduce radiation dose to as low as reasonably achievable. IV CONTRAST: No IV contrast used,0ml TOTAL DOSE: 115.0 CTDIvol(mGy) FINDINGS: CEREBRUM: No edema, hemorrhage, mass, or inappropriate atrophy. CEREBELLUM: No edema, hemorrhage, mass, or inappropriate atrophy. BRAINSTEM: No edema, hemorrhage, mass, or inappropriate atrophy. CSF SPACES: Ventricles, cisterns, and sulci are appropriate for age. No hydrocephalus, subarachnoid hemorrhage, or mass. SKULL: No mass or other significant visible lesion. SINUSES: Mucosal thickening in the ethmoid air cells. ORBITS: Limited views are unremarkable. OTHER: Negative. CONCLUSION: 1. No appreciable acute intracranial abnormality. Dictated by: Arielle Bonilla MD on 05/15/2018 at 15:20 Continued Report - Page 2 of 2 Patient: BRONSON MCCAULEY Phone#: : 1995 Age: 22 Gender: M Pt. Type: ER Account: [id number] Location: 052 Ordering: DR. THEODORE CARLISLE Exam Date: 05/14/2018/7:30 Family Phys: NO DOCTOR Charge Code: [id number] Physician: Clarendon Order #: [id number] DLP Dose#: 115.0 Approved by: Arielle Bonilla MD on 05/15/2018 at 15:20 CHEST 1 VIEW Observed: 05/14/2018 Status: F Source: [facility] 7:57 AM [place] [address] Patient: BRONSON MCCAULEY Phone#: : 1995 Age: 22 Gender: M Pt. Type: ER Account: [id number] Location: 052 Ordering: DR. THEODORE CARLISLE Exam Date: 05/14/2018/7:45 Family Phys: NO DOCTOR Charge Code: [id number] Physician: Clarendon Order #: [id number] DLP Dose#: PROCEDURE: X-RAY CHEST 1 VIEW COMPARISON: [facility], XR, CHEST PA/LAT, 09/26/2017, 5:00. INDICATIONS: Overdose FINDINGS: LUNGS: Endotracheal tube terminates 6.6 cm from the dante. An oral/nasogastric tube tip projects beneath the diaphragm. The side hole is at the level of the gastroesophageal junction. There are perihilar densities may be due to developing atelectasis or infiltrate versus poor inspiratory and changes related to supine position. VASCULATURE: Normal. Unremarkable pulmonary vasculature. CARDIAC: Normal. No cardiac silhouette abnormality or cardiomegaly. MEDIASTINUM: Normal. No visible mass or adenopathy. PLEURA: Normal. No effusion or pleural thickening. BONES: Normal. No fracture or visible bony lesion. OTHER: A monitoring lead projects across the thorax. CONCLUSION: 1. Patchy right perihilar density may represent atelectasis, developing infiltrate, versus changes related to positioning and inspiratory effort. 2. Oral/nasogastric tube side hole projects at the level of the gastroesophageal junction. Recommend advancement. Dictated by: Arielle Bonilla MD on 05/14/2018 at 19:02 Approved by: Arielle Bonilla MD on 05/14/2018 at 19:02 ARTERIAL BLOOD GAS Collected: 05/14/2018 Status: F [facility] 7[facility]25 AM [facility] REPOSITORY TYPE CODE TESTS RESULT OUT OF REFERENCE UNITS RANGE LAB ARTERIAL BLOOD GAS ANALYSIS(LOINC ) ARTERIAL BLOOD GAS ANALYSIS Result Comment: ARTERIAL BLOOD GAS LAB pH(LOINC) 7.35 - 7.45 Low 7.32 pH LAB PCO2(LOINC) 35 - 45 mm Hg 44 PCO2 LAB PO2(LOINC) 80 - 105 mm Hg High 277 PO2 LAB HCO3(LOINC) 22 - 26 mmol/L 23 HCO3 LAB BE(LOINC) -2 - 3 Low -3 BE LAB SaO2(LOINC) 95 - 98 High 100 SaO2 Result Comment: TIME RESULT CALLED _. 05/14/18.0725.DWP. { FIO2/LPM .50 LAB MODALITY(LOINC) MODALITY VENT LAB SPO2(LOINC) SPO2 96 LAB TOTAL RR(LOINC) TOTAL RR 12 LAB PULSE(LOINC) PULSE 91 LAB SAMPLE SITE(LOINC) SAMPLE SITE L RAD LAB VENT(LOINC) VENT SEE BELOW Result Comment: { MODE AC LAB SET RR(LOINC) SET RR 12 LAB TIDAL VOL(LOINC) TIDAL VOL 500 LAB PIP(LOINC) PIP 18 LAB PEEP/CPAP(LOINC) PEEP/CPAP 5 Result Comment: { PRESS SUP . LAB ALLENS TEST(LOINC) ALLENS TEST NA Result Comment: { TIME CALLED . Performed By: #### [id number] #### [facility],[address] [place], [place] [id number] CBC Collected: 05/14/2018 Status: F Source: [facility] 7:00 AM [facility] REPOSITORY TYPE CODE TESTS RESULT OUT OF RANGE REFERENCE UNITS LAB CBC(LOINC) CBC Result Comment: CBC-COMPLETE BLOOD COUNT LAB WBC(LOINC) 4.5 - 10.8 x 10EE3/UL WBC 10.7 LAB RBC(LOINC) 4.50 - x 10EE6/UL 6.00 RBC 5.28 LAB HEMOGLOBIN(LOINC) 13.0 - g/dl 17.5 HEMOGLOBIN 16.4 LAB HEMATOCRIT(LOINC) 40.0 - % 52.0 HEMATOCRIT 47.3 LAB MCV(LOINC) 81 - 98 fl MCV 89 LAB MCH(LOINC) 27 - 33 pg MCH 31 LAB MCHC(LOINC) 32 - 36 X10 3 MCHC 35 LAB RDW/CV(LOINC) 12.0 - % 15.6 RDW/CV 12.7 LAB PLATELET(LOINC) 150 - 450 x10EE3/UL PLATELET 270 LAB MPV(LOINC) 6.4 - 10.5 fl MPV 9.4 Result Comment: AUTOMATED DIFFERENTIAL LAB NEUT %(LOINC) 46.0 - 76.0 % Low NEUT % 31.0 LAB LYMPH %(LOINC) 20.0 - 45.0 % LYMPH % 44.5 LAB MONOS %(LOINC) 0.0 - 10.0 % MONOS % 8.7 LAB EO %(LOINC) 0.0 - 7.0 % EO % High 14.8 LAB BASO %(LOINC) 0.0 - 2.0 % BASO % 1.0 LAB Lymph #(LOINC) 0.80 - 2.80 x10EE3/U L Lymph # High 4.80 LAB Neut #(LOINC) 1.50 - 7.10 x10EE3/U L Neut # 3.30 LAB [place] #(LOINC) 0.20 - 1.00 x10EE3/U L [place] # 0.90 LAB EO #(LOINC) 0.00 - 0.50 x10EE3/U L EO # High 1.60 LAB Baso #(LOINC) 0.00 - 0.10 x10EE3/U L Baso # 0.10 LAB MANUAL DIFF(LOINC) MANUAL DIFF N/A LAB MORPHOLOGY(LOINC ) MORPHOLOGY N/A Result Comment: {CD] Performed By: #### [id number] #### [facility],[address] [place], [place] [id number] CMP WITH EGFR Collected: 05/14/2018 Status: F Source: [facility] 7:00 AM [facility] REPOSITORY TYPE CODE TESTS RESULT OUT OF RANGE REFERENCE UNITS LAB CMP with eGFR(LOINC) CMP with eGFR Result Comment: COMPREHENSIVE METABOLIC PANEL LAB SODIUM(LOINC) 136 - 145 mmol/l SODIUM High 148 LAB POTASSIUM(LOINC) 3.5 - 5.1 mmol/L POTASSIUM 3.8 LAB CHLORIDE(LOINC) 98 - 107 mmol/L CHLORIDE High 109 LAB CO2(LOINC) 21.0 - mmol/L 31.0 CO2 25.1 LAB GLUCOSE(LOINC) 74 - 106 mg/dl GLUCOSE High 125 LAB BUN(LOINC) 6 - 20 mg/dl BUN 14 LAB CREATININE(LOINC) 0.7 - 1.3 mg/dl CREATININE 1.2 LAB AST/SGOT(LOINC) 13 - 39 U/L AST/SGOT 26 LAB ALK PHOS(LOINC) 38 - 126 U/L ALK PHOS 72 LAB CALCIUM(LOINC) 8.6 - mg/dl 10.2 CALCIUM 9.5 LAB TOTAL 6.4 - 8.3 g/dl PROTEIN(LOINC) TOTAL PROTEIN 7.5 LAB ALBUMIN(LOINC) 3.4 - 4.8 g/dL ALBUMIN High 5.0 LAB GLOBULIN(LOINC) 1.5 - 3.8 G/DL GLOBULIN 2.5 LAB A/G RATIO(LOINC) 0.9 - 1.6 A/G High RATIO 2.0 LAB TOTAL BILI(LOINC) 0.0 - 1.5 mg/dl TOTAL BILI 0.6 LAB B/C RATIO(LOINC) 0 - 30 ratio B/C RATIO 12 LAB ALT/SGPT(LOINC) 10 - 40 U/L ALT/SGPT High 43 LAB ANION GAP(LOINC) 10 - 20 mmol/L ANION GAP 18 LAB AGE(LOINC) years AGE 22 LAB eGFR(LOINC) 60 - 999 ML/MINUTE eGFR >60 LAB eGFR(AA)(LOINC) 60 - 999 ML/MINUTE eGFR(AA) >60 Result Comment: ACCORDING TO THE NATIONAL KIDNEY DISEASE EDUCATION PROGRAM(NKDE), A NORMAL eGFR IS A VALUE GREATER THAN OR EQUAL TO 60 ML/MIN/1.73 SQ METERS. CHRONIC KIDNEY DISEASE: <60mL/MIN/1.73 SQ METERS KIDNEY FAILURE: <15mL/MIN/1.73 SQ METERS THIS TEST SHOULD ONLY BE USED FOR PATIENTS 18 YEARS OF AGE AND OLDER. Performed By: #### [id number] #### [facility],[address] [place] [address] ACETAMINOPHEN Collected: 05/14/2018 Status: F [facility]00 [facility] REPOSITORY TYPE CODE TESTS RESULT OUT OF REFERENCE UNITS RANGE LAB ACETAMINOP 10.0 - 20.0 ug/mL HEN(LOINC) ACETAMINOPHEN <10.0 Performed By: #### [id number] #### [address] [address] SALICYLATE Collected: 05/14/2018 Status: F Source: [facility] 7:00 [facility] REPOSITORY TYPE CODE TESTS RESULT OUT OF REFERENCE UNITS RANGE LAB SALICYLATE 0.0 - 30.0 mg/dl (LOINC) SALICYLATE <4.0 Result Comment: *PATIENTS TREATED WITH SULFASALAZINE MAY GENERATE A FALSE HIGH RESULT FOR SALICYLATE. *PATIENTS TREATED WITH SULFAPYRIDINE MAY GENERATE A FALSE LOW RESULT FOR SALICYLATE. Performed By: #### [id number] #### [address] [address] ALCOHOL-BLOOD MEDICAL Collected: 05/14/2018 Status: F Source: [facility] 7:00 [facility] REPOSITORY TYPE CODE TESTS RESULT OUT OF REFERENCE UNITS RANGE LAB ALCOHOL(MAXINE 0 - 50 mg/dl NC) High ALCOHOL 205 Performed By: #### [id number] #### [address] [address] DRUG SCREEN URINE Collected: 05/14/2018 Status: F Source: [facility] MEDIC 7:00 [facility] REPOSITORY TYPE CODE TESTS RESULT OUT OF REFERENCE UNITS RANGE LAB DRUG SCREEN URINE MEDIC(LOINC) DRUG SCREEN URINE MEDIC Result Comment: DRUG SCREEN - URINE LAB PCP(LOINC) PCP NEG LAB COCAINE(LOINC) COCAINE NEG LAB OPIATES(LOINC) OPIATES NEG LAB AMPHETAMINES(LOINC ) AMPHETAMINES NEG LAB B-DIAZEPINES(LOINC ) B-DIAZEPINES NEG LAB TCA(LOINC) TCA NEG LAB METHADONE(LOINC) METHADONE NEG LAB BARBITURATES(LOINC ) BARBITURATES NEG LAB THC(LOINC) THC POS Result Comment: PATIENTS RECEIVING PROTON PUMP INHIBITORS MAY DEMONSTRATE FALSE POSITIVE THC/CANNABINOID RESULTS. AN ALTERNATIVE CONFIRMATORY METHOD SHOULD BE CONSIDERED TO VERIFY POSITIVE RESULTS. Performed By: #### [id number] #### [place] [id number] URINALYSIS Collected: 05/14/2018 Status: F Source: [facility] 7:00 [facility] TYPE CODE TESTS RESULT OUT OF REFERENCE UNITS RANGE LAB URINALYSIS (LOINC) URINALYSIS Result Comment: URINALYSIS LAB Specimen Type(LOINC) Specimen UNSPECIFIED Type LAB Color(LOINC) NORMAL: YELLOW Color p.yel LAB Clarity(LOINC) NORMAL: CLEAR Clarity clear LAB ph(LOINC) NORMAL: 5.0-8.0 ph 6 LAB Protein(LOINC) NORMAL: NEGATIVE Protein NEG LAB Glucose(LOINC) NORMAL: NORMAL Glucose NORM LAB Ketone(LOINC) NORMAL: NEGATIVE Ketone NEG LAB Bilirubin(LOINC) NORMAL: NEGATIVE Bilirubin NEG LAB Blood(LOINC) NORMAL: NEGATIVE Blood NEG LAB Urobilinog(LOINC) NORMAL: NORMAL Urobilinog NORM LAB Sp [place](LOINC) NORMAL: 1.010-1.030 Sp [place] 1.010 LAB Nitrite(LOINC) NORMAL: NEGATIVE Nitrite NEG LAB Leukocytes(LOINC) NORMAL: NEGATIVE Leukocytes NEG LAB Microscopic(LOINC ) Microscopic NOT INDICATED Performed By: #### [id number] #### [place] [id number] CPK Collected: 05/14/2018 Status: F Source: [facility] 7:00 [facility] TYPE CODE TESTS RESULT OUT OF RANGE REFERENCE UNITS LAB CPK(LOINC) 37 - 174 U/L High CPK 275 Performed By: #### [id number] #### [place] [id number] EMERGENCY REPORT Observed: 05/14/2018 Status: F Source: [facility] 6:19 [facility] EMERGENCY ROOM REPORT NAME ACCOUNT SEX AGE ADMIT DISCHARGE PT MED. RECORD# NUMBER DATE DATE TYPE BRONSON MCCAULEY [id number] Vonnie 22 05/14/18 05/14/18 3 VERONICA [id number] ROOM: ER DATE OF : 1995 DICTATING PHYSICIAN: Theodore Carlisle ADDENDUM DIAGNOSTIC DATA: Patient's CT head, C-spine, maxillofacial were unremarkable. Patient's labs were remarkable for positive THC, blood alcohol of 205, CPK approximately 280. Patient does have a prolonged QTc EMERGENCY DEPARTMENT COURSE AND TREATMENT: Patient despite being given propofol and Versed continued to remain agitated. Eventually we paralyzed him with rocuronium at 8 mg. DIAGNOSIS: PLAN/DISPOSITION: Patient was discussed with ICU attending at [place] and will be accepted for further management. Dictated By: Theodore Carlisle MD 05/14/18 08:34 JOB #: [id number] Transcribed By: debi 05/14/18 20:06 Electronically signed by: E-Sign: Theodore Carlisle MD 08/15/18 21:01 Page 1 of 1 BRONSON MCCAULEY Emergency Room Report EMERGENCY REPORT Observed: 05/14/2018 Status: F Source: [facility] 6:19 AM [facility] EMERGENCY ROOM REPORT NAME ACCOUNT SEX AGE ADMIT DISCHARGE PT MED. RECORD# NUMBER DATE DATE TYPE BRONSON MCCAULEY [id number] M 22 05/14/18 3 VERONICA [id number] ROOM: ER DATE OF : 1995 DICTATING PHYSICIAN: Theodore Carlisle HISTORY OF PRESENT ILLNESS: This is a 22-year-old male with a past medical history significant for depression, who presents to the Emergency Department for evaluation of altered mental status. Per girlfriend, the patient and herself smoked marijuana earlier today. Later on, he took about 25 tablets of 25 mg Benadryl as well as 9 tablets of 10 mg Zyprexa. Girlfriend is unsure whether or not this was a suicide attempt. Later on, the patient became pretty agitated and at one time became unresponsive. Upon EMS arrival, he was having sonorous respirations. He was combative; however, he remained nonverbal during the entire time. Upon the patient's arrival to the Emergency Department, he was thrashing, nonverbal, and had sonorous respirations. EMS did not give any medications en route. The patient's glucose was 125. Given the patient's agitation/delirium, the decision was made to intubate the patient. This was done with 20 mg of etomidate and 100 mg of succinylcholine. The patient was then started on the propofol drip. PAST MEDICAL HISTORY: Significant for depression. PAST SURGICAL HISTORY: No known surgical history. MEDICATIONS: Zyprexa. ALLERGIES: Sulfa. REVIEW OF SYSTEMS: Unable to obtain review of systems given the patient's altered mental status. PHYSICAL EXAMINATION: The patient's vital signs are remarkable for a tachycardia in the 100s to 110s. The patient is afebrile. General: The patient is agitated, nonverbal and combative. Head is atraumatic, normocephalic. Pupils are equal, round and reactive to light, approximately 3 mm. Dried blood noted to the nares. No step-offs appreciated of the cervical spine. Trachea is midline. The patient has a normal S1 and S2. Lungs are clear to auscultation bilaterally. Abdomen is soft, nontender, and nondistended. Musculoskeletal: The patient is moving all extremities. Neurologic: The patient is unresponsive. GCS is approximately a 6. Psychiatric: Agitated. EMERGENCY DEPARTMENT COURSE AND TREATMENT: CBC, BMP, urinalysis, drug screen, CT of the head, maxillofacial and C-spine, EKG, and chest x-ray were Page 1 of 2 [facility] Emergency Room Report ordered. The patient will be reevaluated. The patient is currently on a propofol drip. Dictated By: Theodore Carlisle MD 05/14/18 07:12 JOB #: [id number] Transcribed By: kiley 05/14/18 07:46 Electronically signed by: E-Sign: Theodore Carlisle MD 08/15/18 21:58 Page 2 of 2 [facility] Emergency Room Report EMERGENCY DEPARTMENT Observed: 10/08/2017 Status: F Source: [facility] SUMMARY 12:31 PM [facility] EMERGENCY DEPARTMENT SUMMARY NAME NUMBER SEX AGE ADMIT DISC TYPE MED.RECORD# GARRICK BRYAN [id number] M 22 09/26/17 09/26/17 E.RTeri [id number] ROOM:ER-A DATE OF :1995 PHYSICIAN NO.:[id number] PHYSICIAN NAME:BERNARDINO Merritt D.O. PHYSICIAN:NO DOCTOR ON ADMISSION SHEET HISTORY OF PRESENT ILLNESS: The patient came in stating that he was just trying to take Tide Pods to see what it felt like. He also had 4 swigs of Bleach. He admits to drinking beer. According to police, he said he wanted to kill himself and presents to the emergency department. PAST MEDICAL HISTORY: Denies. PAST SURGICAL HISTORY: Appendectomy. SOCIAL HISTORY: He does smoke. He does use marijuana. He does drink alcohol. REVIEW OF SYSTEMS: Ten systems reviewed and negative except as mentioned above. PHYSICAL EXAMINATION: He is an awake, alert, and oriented male in no acute distress. He did say he vomited some blood and has an odor of Bleach whenever when he belches. He is afebrile. Pulse 96, respirations 18, blood pressure 129/89, and pulse ox 95% on room air. Head is normocephalic and atraumatic. Eyes: Pupils are equal, round, and reactive to light. Extraocular muscles intact. Nares are patent. Throat has adequate moisture. Uvula is midline. Neck is supple without petechiae or rash. Heart without murmur. S1 equals S2. No S3 or S4 appreciated. Lungs are clear to auscultation bilaterally. No rales, rhonchi, or retractions. Abdomen is soft, nontender, and nondistended. Skin is warm and dry. DIAGNOSTIC DATA: The patient had blood work obtained. His alcohol level was elevated at 155. His white count was elevated at 25,000, H&H 18 and 52. His lipase was 239. Chemistries were unremarkable. BUN 15, creatinine 0.8. Urinalysis is unremarkable. EMERGENCY DEPARTMENT COURSE AND TREATMENT: The patient was observed in the emergency department. I did pink slip him to the emergency department since he had this question of wanting to hurt himself. We had Crisis come in and evaluate him. DIAGNOSIS: PLAN/DISPOSITION: He was endorsed over to Dr. Tilley at shift change. D: Marco Merritt DO TD: 03:24 JOB #: [id number] Electronically signed by: BERNARDINO Merritt D.O. 10/08/17 12:31 Transcribed by: am 10/05/2017 20:14 ELECTRONICALLY SIGNED BY: BERNARDINO Merritt D.O. 10/08/17 12:31 EMERGENCY DEPARTMENT Observed: 10/05/2017 Status: F Source: [facility] SUMMARY 9:04 AM [facility] EMERGENCY DEPARTMENT SUMMARY NAME NUMBER SEX AGE ADMIT DISC TYPE MED.RECORD# GARRICK BRYAN [id number] M 22 09/26/17 09/26/17 Corinne [id number] ROOM:ER-A DATE OF :1995 PHYSICIAN NO.:[id number] PHYSICIAN NAME:BERNARDINO Merritt D.O. PHYSICIAN:NO DOCTOR ON ADMISSION SHEET ADDENDUM The patient is a 22-year-old male who was brought in secondary to drinking alcohol and bleach in an apparent suicide attempt. The patient at this time has stated that he has no desire to commit suicide or homicide. He states that he was only doing it to get the attention of his girlfriend. The patient at this time has met with crisis, who feels that the patient is safe for discharge and will be seeing him on an outpatient basis. We elected not to obtain any additional lab work on the patient as he is alert and oriented, speaking in full clear sentences. He is ambulatory in the ED and has been able to tolerate approximately 200 mL of Gatorade. The patient clinically does not appear to be intoxicated. The patient does have capacity at this time and states that he feels well enough to go home. The patient is accompanied by his girlfriend who will be driving the patient home at this time. Currently, we feel comfortable allowing the patient to be discharged at this time. DIAGNOSIS: 1. Suicided attempt. 2. Bleach ingestion. 3. Alcohol intoxication. D: Alan Tilley DO TD: 08:37 JOB #: [id number] Electronically signed by: ALAN TILLEY DO 10/05/17 09:04 Transcribed by: sekou 09/26/2017 13:32 CBC Collected: 09/26/2017 Status: F Source: [facility] 2:30 AM [facility] REPOSITORY TYPE CODE TESTS RESULT OUT OF RANGE REFERENCE UNITS LAB CBC(LOINC) CBC Result Comment: CBC-COMPLETE BLOOD COUNT LAB WBC(LOINC) 4.5 - 10.8 x 10EE3/UL WBC High 25.6 LAB RBC(LOINC) 4.50 - x 10EE6/UL 6.00 RBC 5.87 LAB HEMOGLOBIN(LOINC 13.0 - g/dl ) 17.5 High HEMOGLOBIN 18.1 LAB HEMATOCRIT(LOINC 40.0 - % ) 52.0 High HEMATOCRIT 52.9 LAB MCV(LOINC) 81 - 98 fl MCV 90 LAB MCH(LOINC) 27 - 33 pg MCH 31 LAB MCHC(LOINC) 32 - 36 X10 3 MCHC 34 LAB RDW/CV(LOINC) 12.0 - % 15.6 RDW/CV 13.2 LAB PLATELET(LOINC) 150 - 450 x10EE3/UL PLATELET 245 LAB MPV(LOINC) 6.4 - 10.5 fl MPV 8.8 Result Comment: AUTOMATED DIFFERENTIAL LAB NEUT %(LOINC) 46.0 - 76.0 % NEUT % High 84.7 LAB LYMPH %(LOINC) 20.0 - 45.0 % Low LYMPH % 9.4 LAB MONOS %(LOINC) 0.0 - 10.0 % MONOS % 5.7 LAB EO %(LOINC) 0.0 - 7.0 % EO % 0.1 LAB BASO %(LOINC) 0.0 - 2.0 % BASO % 0.1 LAB Lymph #(LOINC) 0.80 - 2.80 x10EE3/U L Lymph # 2.40 LAB Neut #(LOINC) 1.50 - 7.10 x10EE3/U L Neut # High 21.60 LAB [place] #(LOINC) 0.20 - 1.00 x10EE3/U L [place] # High 1.40 LAB EO #(LOINC) 0.00 - 0.50 x10EE3/U L EO # 0.00 LAB Baso #(LOINC) 0.00 - 0.10 x10EE3/U L Baso # 0.00 LAB MANUAL DIFF(LOINC) MANUAL DIFF N/A LAB MORPHOLOGY(LOINC ) MORPHOLOGY N/A Result Comment: {CD] Performed By: #### [id number] #### [facility],[address] [place] [address] CMP WITH EGFR Collected: 09/26/2017 Status: F Source: [facility] 2:30 AM [facility] REPOSITORY TYPE CODE TESTS RESULT OUT OF RANGE REFERENCE UNITS LAB CMP with eGFR(INC) CMP with eGFR Result Comment: COMPREHENSIVE METABOLIC PANEL LAB SODIUM(LOINC) 136 - 145 mmol/l SODIUM 142 LAB POTASSIUM(LOINC) 3.5 - 5.1 mmol/L POTASSIUM 3.5 LAB CHLORIDE(LOINC) 98 - 107 mmol/L CHLORIDE 107 LAB CO2(LOINC) 21.0 - mmol/L 31.0 CO2 Low 20.7 LAB GLUCOSE(LOINC) 74 - 106 mg/dl GLUCOSE High 110 LAB BUN(LOINC) 6 - 20 mg/dl BUN 15 LAB CREATININE(LOINC) 0.7 - 1.3 mg/dl CREATININE 0.8 LAB AST/SGOT(LOINC) 13 - 39 U/L AST/SGOT 30 LAB ALK PHOS(LOINC) 38 - 126 U/L ALK PHOS 65 LAB CALCIUM(LOINC) 8.6 - mg/dl 10.2 CALCIUM 9.2 LAB TOTAL 6.4 - 8.3 g/dl PROTEIN(LOINC) TOTAL PROTEIN 7.7 LAB ALBUMIN(LOINC) 3.4 - 4.8 g/dL ALBUMIN High 4.9 LAB GLOBULIN(LOINC) 1.5 - 3.8 G/DL GLOBULIN 2.8 LAB A/G RATIO(LOINC) 0.9 - 1.6 A/G High RATIO 1.8 LAB TOTAL BILI(LOINC) 0.0 - 1.5 mg/dl TOTAL BILI 0.4 LAB B/C RATIO(LOINC) 0 - 30 ratio B/C RATIO 19 LAB ALT/SGPT(LOINC) 10 - 40 U/L ALT/SGPT 33 LAB ANION GAP(LOINC) 10 - 20 mmol/L ANION GAP 18 LAB AGE(LOINC) years AGE 22 LAB eGFR(LOINC) 60 - 999 ML/MINUTE eGFR >60 LAB eGFR(AA)(LOINC) 60 - 999 ML/MINUTE eGFR(AA) >60 Result Comment: ACCORDING TO THE NATIONAL KIDNEY DISEASE EDUCATION PROGRAM(NKDE), A NORMAL eGFR IS A VALUE GREATER THAN OR EQUAL TO 60 ML/MIN/1.73 SQ METERS. CHRONIC KIDNEY DISEASE: <60mL/MIN/1.73 SQ METERS KIDNEY FAILURE: <15mL/MIN/1.73 SQ METERS THIS TEST SHOULD ONLY BE USED FOR PATIENTS 18 YEARS OF AGE AND OLDER. Performed By: #### [id number] #### [facility],[address] [place] [address] ALLERGIES ALLERGIES DATE TYPE / CODE NAME / CODE REACTION SEVERITY SOURCE 08/17/2018 Drug Sulfa Unknown Unknown [facility])/ Repository CT) [id number](RX NORM) 06/22/2005 Drug SULFA HIVES [facility] Class/491729 (SULFONAMIDE [place] 003(SNOMED ANTIBIOTICS) Repository CT) Drug SULFA Moderate Oscar Melchorne Allergy/4160 (sulfonamide) (Severity [facility] 25835(SNOMED /[id number](RXN Modifier) Repository CT) ORM) (Qualifier Value) ENCOUNTERS ENCOUNTERS ADMIT/DISCHARGE ACCOUNT NUMBER ADMITTING ENCOUNTER LOCATION SOURCE CLASS 08/17/2018/ [id number] Emergency Demetris Demetris 018 [facility] ding:ED Repository 08/08/2018/ [id number] Ambulatory [facility] 018 [facility] [place] Repository 08/08/2018/ [id number] Ambulatory [facility] 018 [facility] [place] Repository 07/11/2018/ [id number] Ambulatory [facility] 018 [facility] [place] Repository 07/11/2018/ [id number] Ambulatory Universal 018 [facility] Repository 06/19/2018 [id number] Inpatient Buildin[address] [place] [address] Encounter 3WRoom: System [id number]: Repository [id number] 06/18/2018/ [id number] Unknown [facility] Repository 05/14/2018/ [id number] BOUSERHAL Inpatient ABuilding:[facility] ALFREDO Ritchie MD Encounter 5SRoom: [place] [address]Bed: A Repository 05/14/2018/ [id number] [facility], Emergency Buildin Oscar Greenbergtal 018 [facility], Room: ERBed: [facility] Repository 09/26/2017/ [id number] [facility], Emergency Buildin Oscar Greenbergtal [address] DR MARCO Garay Room: ERBed: [facility] Repository PAYERS PAYERS ENCOUNTER GUARANTOR PAYER SUBSCRIBER SOURCE 08/17/2018 BRONSON Irizarry Primary BRONSON Willson [id number] Insurance:Emigdio GRAYOB: [facility] [place]UR[place]A POLINA Number: [id number] [id number] Repository [address]Ttc: 330) Date:[phone] () [id number] [place] [address] 01938ZZ: 08/17/2018 Secondary Insurance:SELF NOT GIVENUNK [place] PAY INSURANCEPolicy Community Number: Effective Hospital Date:2018-08-17 Repository 06/19/2018 Bronson TraceyDOB: Primary Bronson TraceyDOB: [facility] Photofy Insurance:Commercial [id number] System [place] Insurance Repository [place], [place] MiscellaneousPolicy [address]Lon: (330) Number: Effective Date: [phone] (HP) 06/19/2018 Secondary Bronson TraceyDOB: [facility] [employer] Insurance:MedicaidPolicy [id number] System Number: Effective Date: Repository 06/18/2018 BRONSON TRACEYDOB: Primary BRONSON TRACEYDOB: [facility] Insurance:GARRICK,PAULPol [id number] System [place] icy Number: [address] Repository [place], [place] [address]Hfrryfdzn [place], [place] [address]Sit: (999) Date:2017-09-06 [id number]: (HP) [phone] (HP) 05/14/2018 BRONSON S Primary Insurance:SELF BRONSON [facility] TRACEYDOB: PAYPolicy Number: TRACEYDOB: [facility] Effective [id number] [address]ository [address] [place] [address], [id number] Name:[address] [place] [address]: [place] [phone]: (HP) (HP) (WP) 05/14/2018 BRONSON VERONICA Primary BRONSON VERONICAHesham Engle TRACEYDOB: Insurance:MEDICAID TRACEYDOB: [facility] OUTPATIENTPolicy Number: [id number] Hospital [id number] [place] [address], Date:Plan Name:[address] [address]Ics: [place] [phone] (HP) 09/26/2017 BRONSON MARTIN Primary Bronson Engle TRACEYDOB: Insurance:[facility] TraceyDOB: [facility] [id number] OUTPATIENTPolicy Number: [id number] [facility] [id number] [address]ository [address] [place] [address], Date:Plan Name:[address] [address]Boj: [place] [phone] ()
== END 2018-08-18 07:55 ==
PROVIDERS: Emergency Provider Emergency Medicine
DX: R45.851 Suicidal ideations (principal); F32.9 Major depressive disorder, single episode, unspecified; F10.129 Alcohol abuse with intoxication, unspecified; Y90.9 Presence of alcohol in blood, level not specified; Z91.14 Patient's other noncompliance with medication regimen; M25.511 Pain in right shoulder; G89.29 Other chronic pain; F12.90 Cannabis use, unspecified, uncomplicated; F17.200 Nicotine dependence, unspecified, uncomplicated
CPT/HCPCS: 80048; 80307; 80320; 85025; 99285; G0480